=== PATIENT | female | born 1970 | race Two or more races ===

== ENCOUNTER 2025-07-27 13:02 | Outpatient (CLI) | payer BC ==
--- NOTE | 2025-07-27 12:56 | RADIOLOGY REPORT ---
CLINICAL HISTORY: LOW BACK PAIN;SPINAL STENOSIS, CERVICAL REGION TECHNIQUE: MRI of the cervical spine was performed without gadolinium. COMPARISON: None FINDINGS: There is straightening of the normal cervical lordosis, likely related patient positioning. The bone marrow signal is unremarkable. The vertebral body heights are maintained. Is mild C6-C7 disc space loss. The cervical spinal cord demonstrates no abnormal signal. The C2-C3, C3-C4, and C4-C5 disc spaces are unremarkable. At C5-C6, a small posterior disc osteophyte complex partially effaces the ventral CSF. Left facet and uncovertebral hypertrophy result in mild to moderate neural foraminal narrowing. At C6-C7, a posterior disc osteophyte complex partially effaces the ventral CSF. The C7-T1 disc space is unremarkable. IMPRESSION: C5-C6 and C6-C7 posterior disc osteophyte complexes partially efface the ventral CSF. [id number] left C5-C6 neural foraminal narrowing.
== END 2025-07-27 23:59 | disposition home or self-care (01) ==
LOC: MRI02 13:02
PROVIDERS: ATTEND Physical Medicine & Rehabilitation
DX: M48.02 Spinal stenosis, cervical region (principal); M54.50 Low back pain, unspecified; M47.816 Spondylosis without myelopathy or radiculopathy, lumbar region; M25.78 Osteophyte, vertebrae
CPT/HCPCS: 72141